=== PATIENT | female | born 1980 | race Caucasian/White ===

== ENCOUNTER 2018-04-19 18:39 | Emergency (ER) | payer MEDICAID ==
[2018-04-19] MEDS ORDERED: CLONIDINE 0.1 MG/24 HR PATCH.TDWK TD ONE (20:45)
[2018-04-19] MEDS ORDERED: GABAPENTIN 100 MG CAPSULE PO ONE (20:45)
[2018-04-19] MEDS ORDERED: PROMETHAZINE HCL 25 MG TABLET PO ONE (20:45)
--- NOTE | 2018-04-19 20:47 | ER Document Report ---
ED Extremity Problem, Lower - General Chief Complaint: Leg Pain Stated Complaint: POSSIBLE BLOOD CLOT Time Seen by Provider: 04/19/18 20:35 Notes: Patient is a 37-year-old female that comes to the emergency department for chief complaint of calf pain in both legs with intermittent swelling. She states that she went to her primary care and was found to have a positive d- dimer, she states that she was sent here for ultrasound because of this. She denies shortness of breath, chest pain, or any other current symptoms at this time. She does smoke, she denies oral contraceptive, she denies personal or family history of blood clot, no recent travel or surgery. She denies any injury to her legs. She states she is due for Suboxone and she is worried she will have some withdrawal symptoms, otherwise no complaints. TRAVEL OUTSIDE OF THE [place] IN LAST 30 DAYS: No - Related Data Allergies/Adverse Reactions: No Known Allergies Allergy (Unverified 04/19/18 18:44) Past Medical History - General Information source: Patient - Social History Smoking Status: Current Every Day Smoker Smoking Education Provided: Yes - <3 min Drug Abuse: None Lives with: Family Family History: Reviewed & Not Pertinent Surgical Hx: Negative - Immunizations Immunizations up to date: Yes Hx Diphtheria, Pertussis, Tetanus Vaccination: Yes Review of Systems - Review of Systems Constitutional: See HPI EENT: No symptoms reported Cardiovascular: See HPI Respiratory: No symptoms reported Gastrointestinal: No symptoms reported Genitourinary: No symptoms reported Female Genitourinary: No symptoms reported Musculoskeletal: See HPI Skin: No symptoms reported Hematologic/Lymphatic: No symptoms reported Neurological/Psychological: No symptoms reported Physical Exam - Vital signs Vitals: Temp Pulse Resp BP Pulse Ox 98.3 F 93 16 157/98 H 100 04/19/18 18:45 04/19/18 18:45 04/19/18 18:45 04/19/18 18:45 04/19/18 18:45 - Notes Notes: GENERAL: Alert, interacts well. No acute distress. HEAD: Normocephalic, atraumatic. EYES: Pupils equal, round, and reactive to light. Extraocular movements intact. ENT: Oral mucosa moist, tongue midline. NECK: Full range of motion. Supple. Trachea midline. LUNGS: Clear to auscultation bilaterally, no wheezes, rales, or rhonchi. No respiratory distress. HEART: Regular rate and rhythm. No murmur ABDOMEN: Soft, non-tender. Non-distended. Bowel sounds present in all 4 quadrants. EXTREMITIES: Moves all 4 extremities spontaneously. Reported pain with palpation of the calf but no rigidity, erythema, abnormal heat, or other concerning findings with the calf. Grossly equal calves. No edema, normal radial and dorsalis pedis pulses bilaterally. No cyanosis. BACK: no cervical, thoracic, lumbar midline tenderness. No saddle anesthesia, normal distal neurovascular exam. NEUROLOGICAL: Alert and oriented x3. Normal speech. [cranial nerves II through XII grossly intact]. PSYCH: Nervous but otherwise well-appearing SKIN: Warm, dry, normal turgor. No rashes or lesions noted. Course - Re-evaluation Re-evalutation: Venous Doppler initial testing results reported as normal. This is consistent with patient's bilateral calf pain, I have low suspicion of DVT based on her exam although because of her elevated d-dimer and smoking this test was performed. No evidence of infection on exam, patient stands on her legs all day , reports being under rested and poor diet, most likely musculoskeletal. Patient was given medications for potential Suboxone withdrawals, she states she has stopped within the past 1-2 days, she was medicated while she was here, she does request additional medication for home in case she needs them. Patient has a supportive family member with her at bedside, discussed expectations, follow-up, and return precautions in regards to her legs and Suboxone withdrawal. They state understanding and agreement. - Vital Signs Vital signs: Temp Pulse Resp BP Pulse Ox 98.1 F 81 16 143/94 H 100 04/19/18 22:37 04/19/18 22:37 04/19/18 22:37 04/19/18 22:37 04/19/18 22:37 Discharge - Discharge Clinical Impression: Opiate withdrawal Leg pain Qualifiers: Laterality: bilateral Qualified Code(s): M79.604 - Pain in right leg Condition: Stable Disposition: HOME, SELF-CARE Additional Instructions: Your venous Doppler does not show any blood clot, your examination does not indicate infection, this is most likely muscular strain and soreness. Apply heat to the muscles, stay hydrated, rest, [id number] anti- inflammatories can help. In regards to stopping opiate related substances you can experience some withdrawal symptoms including cramping, nausea vomiting, difficulty sleeping, etc. You have been prescribed medications to help with this, you can keep the patch on for the duration of the week, you can apply tape over the area when showering. Follow-up with your provider for additional evaluation and management. eturn for any concerning symptoms including redness or swelling of the area, fever of 100.4 or greater, difficulty breathing, or any other concerning or worsening symptoms. Prescriptions: Gabapentin 2 cap PO BID PRN #30 capsule PRN Reason: Promethazine HCl [Phenergan 25 mg Tablet] 25 mg PO Q6H PRN #20 tablet PRN Reason:
[2018-04-19 22:46] VITALS: BP 143/94
--- NOTE | 2018-04-20 10:44 | XCELERA REPORT ---
[address] [facility] [address] Lower Extremity Venous Evaluation Procedure: Color flow and duplex imaging bilaterally of the veins of the lower extremities as well as the Common Femoral veins. Right Sided Venous Evaluation Normal vessel filling wall to wall, compression and augmentation as well as Colour flow down to the infrageniculate veins. Left Sided Venous Evaluation Normal vessel filling wall to wall, compression and augmentation as well as Colour flow down to the infrageniculate veins. Interpretation Summary No duplex evidence of DVT or obstruction in the bilateral lower extremities. Name: BRIANA BRIONES Age: 37 yrs Gender: Female : 1980 Patient Status: Emergency Patient Location: ER Study Date: 04/19/2018 09:26 PM Reason For Study: positive d-dimer, bilateral calf pain Ordering Physician: NOA CHANG Performed By: Lori Moran : NOA CHANG > Harrison Muro
== END 2018-04-19 22:37 | disposition home or self-care (01) ==
LOC: ER 18:39
DX: F11.23 Opioid dependence with withdrawal (principal); M79.604 Pain in right leg; M79.605 Pain in left leg; M79.89 Other specified soft tissue disorders; F17.200 Nicotine dependence, unspecified, uncomplicated; Z79.899 Other long term (current) drug therapy
CPT/HCPCS: 99284; 93970 ×2; J3490 ×3